=== PATIENT | female | born 1985 | race Caucasian/White ===

== ENCOUNTER 2017-09-22 20:56 | Inpatient (IN) | payer OTHER ==
[~2017-09-22] VITALS: Ht 170.2 cm; Wt 188.6 kg
--- NOTE | ~2017-09-22 | HC ---
[facility] [address] CONSULTATION Name: ODALIS ARELLANO Room #: 210-P [facility] IN M.R.#: [id number] Admission: 09/23/17 Attend Phys: Jhon Medina MD Discharge: 09/26/17 Date of : 85 Report #: [id number] THIS REPORT FOR: //name// CC: FAM physician/PCP hJon Medina DATE OF SERVICE: 09/25/2017 REFERRING PHYSICIAN: Jhon Medina MD. REASON FOR REFERRAL: Cough. HISTORY OF PRESENT ILLNESS: The patient is a 32-year-old white female who presents to the Emergency Room with worsening cough. Pulmonary consultation was requested. The patient states that she has had trouble with cough for the past 5 days. With worsening symptoms, she presents to the Emergency Room. The patient states that her cough initially was nonproductive, lately has been productive of purulent sputum. Otherwise, denies any night sweats, fever, chills, chest pain, or hemoptysis. Denies any recent nausea, vomiting, or diarrhea. PAST MEDICAL HISTORY: Notable for smoking less than a pack a day for several years. Denies any alcohol use. Otherwise, unremarkable. PAST SURGICAL HISTORY: Unremarkable. ALLERGIES: None to medications. HOME MEDICATIONS: None. FAMILY HISTORY: Noncontributory. SOCIAL HISTORY: Tobacco history as mentioned above. She denies any alcohol use. REVIEW OF SYSTEMS: As mentioned above. It is notable for morbid obesity. She states that she has been trying to lose some weight recently. PHYSICAL EXAMINATION: GENERAL: She is awake, alert, in no apparent distress. VITAL SIGNS: Temperature is 98 degrees Fahrenheit, pulse is 80, respiratory rate is 16, blood pressure is 160/90 mmHg, saturation 91%. HEENT: Normocephalic, atraumatic. [facility] [address] [place] [address] CONSULTATION Name: MIMI READODALIS Room #: 210-P [facility] IN [facility].#: [id number] Admission: 09/23/17 Attend Phys: Jhon Medina MD Discharge: 09/26/17 Date of : 85 Report #: [id number] NECK: Supple without any lymphadenopathy or thyromegaly. CHEST: Breath sounds are good bilaterally with mild expiratory wheezes. CARDIOVASCULAR: Heart sounds are distant. No obvious murmurs or gallop. Pulses are 2+ and 4+ bilaterally. ABDOMEN: Obese, soft, nontender. No organomegaly or masses felt. GENITOURINARY AND RECTAL: Deferred. EXTREMITIES: There is no cyanosis or clubbing. Trace edema in the lower extremities. LABORATORY DATA: Chest x-ray shows cardiomegaly with vascular congestion, mild interstitial edema. BNP is 236. Venous Doppler ultrasound of the lower extremities was unremarkable for DVT. EKG was notable for sinus tachycardia, poor R-wave progression. Troponin was normal. Procalcitonin was normal. 2D echocardiogram showed technically difficult study, normal LV function, ejection fraction of 60-65%. Otherwise, grossly unremarkable. CT chest angiogram was felt to be suboptimal study, nondiagnostic. Otherwise, some mild infiltrates and atelectasis noted. IMPRESSION: 1. Worsening productive cough in this 32-year-old white female with history of tobacco use. CT chest angiogram shows mild atelectasis. Echocardiogram is noted. Leg Doppler ultrasound was noted. Suspect the patient likely has underlying acute bronchitis with a component of possible early onset COPD. 2. Morbid obesity. The patient should be screened for possible sleep apnea. 3. Elevated blood pressure. May have a component of undiagnosed hypertension. RECOMMENDATION: Agree with broad-spectrum antibiotics to treat for acute bronchitis. Would also recommend bronchodilators and corticosteroids for possible mild COPD. Strongly recommend smoke cessation. Would also recommend patient to be screened for possible sleep apnea. DVT and GI prophylaxis recommended. Thank you for the consultation. <ELECTRONICALLY SIGNED> By: Celestino Sommer MD 09/30/17 1409 [id number] [id number] Celestino Sommer MD /nt
--- NOTE | ~2017-09-22 | EKG ---
[address] [place] [address] ELECTROCARDIOGRAM REPORT Name: ODALIS ARELLANO Room #: 210-P ADM IN M.R.#: [id number] Admission: 09/23/17 Attend Phys: Jhon Medina MD Discharge: Date of : 85 Report #: [id number] THIS REPORT FOR: //name// [facility] ED Test Date: 2017-09-22 Test Time: 23:50:17 Pat Name: ODALIS READ Department: Room: 210 Gender: F Wound Care Physician: richy : 1985 Requested By: Reggie Chawla Order Number: [id number] MD: Darren Bhagat Measurements Intervals [place] Rate: 112 P: 25 IN: 130 QRS: 30 QRSD: 87 T: 29 QT: 345 QTc: 471 Interpretive Statements Sinus tachycardia Poor R wave progression No previous ECG available for comparison Electronically Signed On 09-23-2017 8:03:51 [employer] by Darren Bhagat [email or web address] <ELECTRONICALLY SIGNED> By: Darren Bhagat MD, [facility] 09/23/17 0803 2350 Darren Bhagat MD, FACC /EPI
--- NOTE | ~2017-09-22 | 2DMMODE ---
[facility] [place] [address] 2 D/M-MODE ECHOCARDIOGRAM Name: ODALIS ARELLANO Room #: 210-P ADM IN M.R.#: [id number] Admission: 09/23/17 Attend Phys: Jhon Medina MD Discharge: Date of : 85 Date of Service: 09/23/17 1303 Report #: [id number] THIS REPORT FOR: //name// APPROVED REPORT Study performed: 09/23/2017 12:08:22 EXAM: Comprehensive 2D, Doppler, and color-flow Echocardiogram Patient Location: Bedside Room #: 210 Status: routine BSA: 2.77 HR: 112 bpm BP: 155/91 mmHg Rhythm: Tachycardia Other Information Study Quality: Fair/poor Technically limited study due to morbid obesity. Indications Large heart, tachycardia, short of air, morbid obesity, positive D-dimer. 2D Dimensions LVEF(%): 65.32 (>50%) IVSd: 11.41 (7-11mm) LVOT Diam: 20.54 (18-24mm) LVDd: 49.52 mm PWd: 12.40 (7-11mm) Ascending Ao: 32.88 (22-36mm) LVDs: 31.72 (25-40mm) Aortic Root: 32.29 mm Valdez's LVEF: 65.32 % Volumes Left Atrial Volume (Systole) Single Plane 4CH: 59.93 mL Single Plane 2CH: 80.79 mL LA ESV Index: 27.00 mL/m2 Aortic Valve AoV Peak Ty.: 2.13 m/s AO Peak Gr.: 18.13 mmHg LVOT Max P.45 mmHg LVOT Max V: 1.27 m/s EDSON Vmax: 1.98 cm2 Pulmonary Valve [facility] [address] [address] 2 D/M-MODE ECHOCARDIOGRAM Name: MIMI ODALIS READ Room #: [address] [place] [address] [place] ..#: [id number] Admission: 09/23/17 Attend Phys: Jhon Medina MD Discharge: Date of : 85 Date of Service: 09/23/17 1303 Report #: [id number] PV Peak Ty.: 1.22 m/s PV Peak Gr.: 5.99 mmHg Tricuspid Valve RAP Estimate: 10.00 mmHg Left Ventricle The left ventricle is normal size. Regional wall motion is not well visualized but grossly normal. There is normal left ventricular wall thickness. Left ventricular systolic function is normal. LVEF is 60-65%. This study is not technically sufficient to allow evaluation of the LV diastolic function. Right Ventricle Right ventricle is not well visualized. Atria The left atrium size is normal. The right atrium size is normal. Aortic Valve The aortic valve is not well visualized but appears grossly normal. No aortic regurgitation is present. There is no aortic valvular stenosis. Mitral Valve The mitral valve is normal in structure. Trace mitral regurgitation. Tricuspid Valve Tricuspid valve is not well visualized. Unable to assess PA pressure. Pulmonic Valve Pulmonic valve is not well visualized. Trace pulmonic regurgitation. Great Vessels The aortic root is normal in size. The ascending aorta is normal in size. IVC is dilated and collapses <50% with inspiration. Pericardium There is no pericardial effusion. <Conclusion> Technically limited study [facility] [address] [place] [address] 2 D/M-MODE ECHOCARDIOGRAM Name: ODALIS ARELLANO Room #: 210-P [facility] IN M.R.#: [id number] Admission: 09/23/17 Attend Phys: Jhon Medina MD Discharge: Date of : 85 Date of Service: 09/23/17 130 Report #: [id number] Left ventricular systolic function is normal. Regional wall motion is not well visualized but grossly normal. LVEF is 60-65%. The aortic valve is not well visualized but appears grossly normal. No aortic regurgitation or stenosis. The mitral valve is normal in structure. Trace mitral regurgitation. There is no pericardial effusion. <ELECTRONICALLY SIGNED> By: Darren Bhagat MD, [facility] 09/23/17 1303 130 1303 Darren Bhagat MD, FACC /INF
[2017-09-22 21:10] VITALS: BP 142/117
[2017-09-22] MEDS ORDERED: TESSALON PERLE100 MG PO (21:39)
[2017-09-22] MEDS ORDERED: VENTOLIN HFA 1818 GM INH (21:39)
[2017-09-23 00:51] LABS: ABSOLUTE NEUTROPHILS 8.7 thou/uL (1.4-8.2); BASOPHILS 0.5 % (0.0-2.0); EOSINOPHILS 1.7 % (0.0-3.0); HEMATOCRIT 37.6 % (37.0-47.0); HEMOGLOBIN 12.6 gm/dL (12.0-15.0); LYMPHOCYTES 17.8 % (24.0-44.0); MCH 27.1 pg (26.0-34.0); MCHC 33.5 g/dL (28.0-37.0); MCV 80.9 fL (80.0-100.0); MONOCYTES 7.6 % (1.0-8.0); PLATELET COUNT 248 thou/uL (150-400); POLYS 72.4 % (36.0-66.0); RBC 4.65 mil/uL (4.20-5.00); RDW 16.2 % (10.5-14.5)
[2017-09-23 00:57] LABS: ANION GAP 10 mmol/L (7-16); BUN 7 mg/dL (7-18); CALCIUM 9.2 mg/dL (8.5-10.1); CHLORIDE 99 mmol/L (98-107); CO2 30 mmol/L (21-32); CREATININE 0.7 mg/dL (0.6-1.0); GLUCOSE 189 mg/dL (74-106); POTASSIUM 3.6 mmol/L (3.5-5.1); SODIUM 139 mmol/L (136-145)
[2017-09-23 01:06] LABS: ALBUMIN 3.3 g/dL (3.4-5.0); MAGNESIUM 1.7 mg/dL (1.8-2.4); SGOT 83 U/L (15-37); SGPT 176 U/L (30-65); TOTAL BILIRUBIN 0.7 mg/dL (<0.1-1.0); TOTAL PROTEIN 8.3 g/dL (6.4-8.2); TROPONIN-I < 0.04 ng/mL (<0.06)
[2017-09-23 01:07] LABS: APTT 25.5 Seconds (24.5-32.8); D-DIMER 0.92 ug/mLFEU (0.19-0.50); PROTIME 9.8 Seconds (9.3-11.4)
[2017-09-23 02:39] VITALS: BP 148/70
[2017-09-23 08:00] VITALS: BP 132/75
[2017-09-23 10:10] LABS: CHOLESTEROL 195 mg/dL (<200); HDL CHOLESTEROL 40 mg/dL (>40); LDL CHOLESTEROL 137 mg/dL (<100); TC:HDL 4.9 Ratio (Not establshd); TRIGLYCERIDE 93 mg/dL (<150); VLDL 19 mg/dL (<40)
[2017-09-23 10:52] LABS: FOLIC ACID 19.8 ng/mL (8.6-58.9)
[2017-09-23 11:45] VITALS: BP 155/91
[2017-09-23 16:42] VITALS: BP 154/100
[2017-09-23 19:02] VITALS: BP 158/107
[2017-09-23 23:39] VITALS: BP 161/103
[2017-09-24 00:09] LABS: GLYCOHEMOGLOBIN (HGB A1C) 7.5 % (4.8-5.6)
[2017-09-24 04:52] VITALS: BP 155/98
[2017-09-24 06:32] LABS: HEMATOCRIT 35.6 % (37.0-47.0); HEMOGLOBIN 11.6 gm/dL (12.0-15.0); MCH 26.7 pg (26.0-34.0); MCHC 32.6 g/dL (28.0-37.0); MCV 81.9 fL (80.0-100.0); PLATELET COUNT 274 thou/uL (150-400); RBC 4.35 mil/uL (4.20-5.00); RDW 16.3 % (10.5-14.5); WBC 15.7 thou/uL (4.0-11.0)
[2017-09-24 06:47] LABS: CALCIUM 8.8 mg/dL (8.5-10.1); CREATININE 0.8 mg/dL (0.6-1.0); POTASSIUM 4.2 mmol/L (3.5-5.1)
[2017-09-24 07:30] LABS: ABSOLUTE NEUTROPHILS 13.2 thou/uL (1.4-8.2); METAMYELOCYTES 3 %; MYELOCYTES 1 %
[2017-09-24 07:31] LABS: ANISOCYTOSIS 1+; POLYCHROMASIA OCCASIONAL
[2017-09-24 08:01] VITALS: BP 141/90
[2017-09-24 15:36] VITALS: BP 143/91
[2017-09-24 19:39] VITALS: BP 182/104
[2017-09-25 04:05] VITALS: BP 114/62
[2017-09-25 07:08] VITALS: BP 158/102
[2017-09-25 07:32] LABS: HEMOGLOBIN 12.1 gm/dL (12.0-15.0); MCH 26.9 pg (26.0-34.0); MCHC 32.8 g/dL (28.0-37.0); PLATELET COUNT 299 thou/uL (150-400); RBC 4.52 mil/uL (4.20-5.00); WBC 17.3 thou/uL (4.0-11.0)
[2017-09-25 07:36] LABS: CALCIUM 9.5 mg/dL (8.5-10.1); POTASSIUM 4.2 mmol/L (3.5-5.1)
[2017-09-25 08:16] LABS: ABSOLUTE NEUTROPHILS 13.3 thou/uL (1.4-8.2); METAMYELOCYTES 4 %; MYELOCYTES 1 %
[2017-09-25 08:18] LABS: POLYCHROMASIA SLIGHT
[2017-09-25 08:19] LABS: ANISOCYTOSIS 1+
[2017-09-25 11:40] VITALS: BP 162/93
[2017-09-25 15:08] VITALS: BP 164/107
[2017-09-25 19:45] VITALS: BP 180/103
[2017-09-26 00:45] VITALS: BP 157/89
[2017-09-26 04:30] VITALS: BP 153/91
[2017-09-26 07:00] VITALS: BP 189/121
[2017-09-26] MEDS ORDERED: GLUCOPHAGE500 MG PO (09:55)
[2017-09-26] MEDS ORDERED: VENTOLIN HFA 1818 GM INH (09:55)
[2017-09-26] MEDS ORDERED: MEDROL DOSPAK21 TA1 PO (09:55)
[2017-09-26] MEDS ORDERED: LEVAQUIN 500 M500 M2 PO (09:55)
[2017-09-26 11:25] VITALS: BP 167/103
[2017-09-26 15:30] VITALS: BP 191/109
[2017-09-26 16:17] VITALS: BP 167/103
[2017-09-26 22:11] LABS: ADENOVIRUS Negative (Negative); INFLUENZA A Negative (Negative); INFLUENZA B Negative (Negative); METAPNEUMOVIRUS Negative (Negative); PARAINFLUENZA 1 Negative (Negative); PARAINFLUENZA 2 Negative (Negative); PARAINFLUENZA 3 Negative (Negative); RHINOVIRUS Negative (Negative); RSV A Negative (Negative); RSV B Negative (Negative)
== END 2017-09-26 16:33 | disposition home or self-care (01) | DRG 189 ==
LOC: ER 20:56 → EROBS 09-23 02:08 → 2N 09-23 02:08
PROVIDERS: Emergency Medicine; Family Medicine; Nurse Practitioner
DX: J96.00 Acute respiratory failure, unspecified whether with hypoxia or hypercapnia (principal); Z68.44 Body mass index [BMI] 60.0-69.9, adult; J44.1 Chronic obstructive pulmonary disease with (acute) exacerbation; F17.210 Nicotine dependence, cigarettes, uncomplicated; E66.01 Morbid (severe) obesity due to excess calories; E83.42 Hypomagnesemia; E11.9 Type 2 diabetes mellitus without complications; Z71.6 Tobacco abuse counseling; Z83.3 Family history of diabetes mellitus; Z82.49 Family history of ischemic heart disease and other diseases of the circulatory system; Z82.5 Family history of asthma and other chronic lower respiratory diseases; Z84.89 Family history of other specified conditions
CPT/HCPCS: 10081